=== PATIENT | female | born 1970 | race Caucasian/White ===

== ENCOUNTER 2018-05-17 17:22 | Emergency (ER) | payer BC ==
[~2018-05-17] VITALS: Ht 162.6 cm; Wt 43.6 kg
[2018-05-17 17:35] VITALS: BP 116/72
[2018-05-17] MEDS ORDERED: CLIN150C2 PO (17:58)
== END 2018-05-17 18:06 | disposition home or self-care (01) ==
LOC: ER 17:22
DX: K04.7 Periapical abscess without sinus (principal); F12.90 Cannabis use, unspecified, uncomplicated; Z79.2 Long term (current) use of antibiotics
CPT/HCPCS: 99283